=== PATIENT | male | born 1955 | race Hispanic/Latino ===

== ENCOUNTER 2017-06-10 18:02 | Emergency (ER) | payer BC ==
[2017-06-10 18:09] VITALS: BMI 32.7
[2017-06-10 18:10] VITALS: TEMP 98.3
[2017-06-10] MEDS ORDERED: Vancomycin 1gm in NS 250ml 1 GM/250 ML BAG IVPB STA (18:41)
[2017-06-10 19:12] LABS: BASO # 0.06 K/mm3 (0.0-2.0); BASO % 0.5 % (0.0-3.0); EOS # 0.4 (0.0-0.7); EOS % 3.6 % (1.5-5.0); GRAN # 8.12 (1.4-6.5); GRAN % 67.6 % (50.0-68.0); HEMATOCRIT 43.3 % (42.0-52.0); LYMPH # 2.5 (1.2-3.4); LYMPH % 20.6 % (22.0-35.0); MEAN CELL VOLUME 88.5 fl (80.0-105.0); MEAN CORPUSCULAR HEMOGLOBIN 30.5 pg (25.0-35.0); MEAN CORPUSCULAR HGB CONC 34.4 g/dl (31.0-37.0); MEAN PLATELET VOLUME 10.3 fl (7.0-11.0); MONO # 0.9 (0.1-0.6); MONO % 7.7 % (1.0-6.0); RED CELL DISTRIBUTION WIDTH 13.7 % (11.5-14.5)
[2017-06-10 19:20] LABS: ALB/GLOB RATIO 1.2 (1.1-1.8); ALKALINE PHOSPHATASE 84 U/L (38-126); ALT/SGPT 33 U/L (7-56); AST/SGOT 22 U/L (17-59); BILIRUBIN,TOTAL 0.4 mg/dL (0.2-1.3); BLOOD UREA NITROGEN 16 mg/dL (7-21); CALCIUM 8.7 mg/dL (8.4-10.5); CARBON DIOXIDE 31 mmol/L (21-33); CHLORIDE 100 mmol/L (98-107); GFR AFRICAN-AMERICAN > 60; GLUCOSE,RANDOM 113 mg/dL (70-110); POTASSIUM 3.7 mmol/L (3.6-5.0); SODIUM 138 mmol/L (132-148); TOTAL PROTEIN 7.6 g/dL (5.8-8.3)
--- NOTE | 2017-06-10 19:39 | ED PDOC ---
Arrival/HPI - General Historian: Patient, Spouse - History of Present Illness Time/Duration: < month Symptom Onset: Sudden Symptom Course: Improving Quality: Throbbing Severity Level: Mild, Moderate Context: Home - General Chief Complaint: Abnormal Skin Integrity Time Seen by Provider: 06/10/17 18:35 - History of Present Illness Narrative History of Present Illness (Text): 06/10/17 19:34 61M w/no sig PMH evaluated for L neck abscess x 3 weeks. Pt reports lesion started as a small pimple that enlarged overtime, then spontaneous started to drain 1.5 weeks ago. Pt went to PMD today, who sent pt to ED for further evaluation. Denies N & V, F & C, SOB, neck pain, chest pain, palpitations, headache, vision changes, other complaints. PMH: Denies PSH: L knee surgery, cholecystectomy All: Denies SH: ETOH (rare), hx tobacco use (quit 2014, had 1-1.5 ppd x 20+ yrs), denies illicit drug use PMD: Dedousis/Adaniel (Clarisse Thompson) Past Medical History - Provider Review Nursing Documentation Reviewed: Yes - Cardiac Hx Cardiac Disorders: No - Pulmonary Hx Respiratory Disorders: No - Neurological Hx Neurological Disorder: No - HEENT Hx HEENT Disorder: No - Renal Hx Renal Disorder: No - Endocrine/Metabolic Hx Endocrine Disorders: No - Hematological/Oncological Hx Blood Disorders: No - Integumentary Hx Dermatological Disorder: No - Musculoskeletal/Rheumatological Other/Comment: multi sx on left knee, replaced. - Gastrointestinal Hx Gastrointestinal Disorders: No - Genitourinary/Gynecological Hx Genitourinary Disorders: No - Psychiatric Hx Psychophysiologic Disorder: No Hx Substance Use: No - Surgical History Hx Cholecystectomy: Yes - Anesthesia Hx Anesthesia: No Hx Anesthesia Reactions: No Hx Malignant Hyperthermia: No Family/Social History - Physician Review Nursing Documentation Reviewed: Yes Family/Social History: No Known Family HX Smoking Status: Former Smoker Hx Alcohol Use: No Hx Substance Use: No Allergies/Home Meds Allergies/Adverse Reactions: Allergies No Known Allergies Allergy (Verified 06/10/17 18:09) Review of Systems - Physician Review All systems were reviewed & negative as marked: Yes - Review of Systems Constitutional: Normal. absent: Fevers Eyes: Normal. absent: Vision Changes ENT: Normal. absent: Sore Throat Respiratory: Normal. absent: SOB, Cough Cardiovascular: Normal. absent: Chest Pain, Palpitations Gastrointestinal: Normal. absent: Abdominal Pain, Nausea, Vomiting, Appetite Changes Musculoskeletal: Normal. absent: Neck Pain Skin: Abscess (left side neck). absent: Normal Neurological: Normal. absent: Headache, Dizziness Physical Exam Vital Signs Reviewed: Yes Temperature: Afebrile Blood Pressure: Normal Pulse: Regular Respiratory Rate: Normal Appearance: Positive for: Non-Toxic, Comfortable Pain Distress: Mild Mental Status: Positive for: Alert and Oriented X 3 - Systems Exam Head: Present: Atraumatic, Normocephalic Extroacular Muscles: Present: EOMI Conjunctiva: Present: Normal Mouth: Present: Moist Mucous Membranes Nose (External): Present: Atraumatic Neck: Present: Normal Range of Motion, Other (Left neck with large 8 x 6cm area of induration with central ulcer, draining purulent and serous drainage. No palpable fluctuance, tender. ) Respiratory/Chest: Present: Clear to Auscultation, Good Air Exchange. No: Respiratory Distress, Accessory Muscle Use Cardiovascular: Present: Regular Rate and Rhythm, Normal S1, S2. No: Murmurs Abdomen: Present: Normal Bowel Sounds. No: Tenderness, Distention, Peritoneal Signs Back: Present: Normal Inspection Upper Extremity: Present: Normal Inspection. No: Cyanosis, Edema Lower Extremity: Present: Normal Inspection. No: Edema Neurological: Present: GCS=15, CN II-XII Intact, Speech Normal, Motor Func Grossly Intact Skin: Present: Warm, Dry, Erythematous (left neck), Abscess (Left neck). No: Rashes, Normal Color (left neck) Psychiatric: Present: Alert, Oriented x 3, Normal Insight, Normal Concentration Vital Signs Temp Pulse Resp BP Pulse Ox 06/10/17 21:34 68 17 98 06/10/17 21:28 68 17 98 06/10/17 19:36 68 16 148/80 97 06/10/17 18:10 98.3 F 71 17 150/88 96 Medical Decision Making ED Course and Treatment: 06/10/17 18:42 Pt seen/evaluated, will order imaging and blood work to assess abscess depth. 06/10/17 21:20 Performed needle aspiration of abscess without purulent drainage. Pt to be d/c' d - needs to be at work at 10pm. (Clarisse Thompson) Patient Seen With Resident: In agreement with resident note which contains more details about the patient. Patient was seen and evaluated with resident. Came up with plan and treatment together. (Isabella Chadwick) - Lab Interpretations Lab Results: 06/10/17 19:00 06/10/17 19:00 Lab Results 06/10/17 19:00: Sodium 138, Potassium 3.7, Chloride 100, Carbon Dioxide 31, Anion Gap 11, BUN 16, Creatinine 1.2, Est GFR ( Amer) > 60, Est GFR (Non- Af Amer) > 60, Random Glucose 113 H, Calcium 8.7, Total Bilirubin 0.4, AST 22, ALT 33, Alkaline Phosphatase 84, Total Protein 7.6, Albumin 4.1, Globulin 3.5, Albumin/Globulin Ratio 1.2 06/10/17 19:00: WBC 12.0 H, RBC 4.89, Hgb 14.9, Hct 43.3, MCV 88.5, MCH 30.5, MCHC 34.4, RDW 13.7, Plt Count 301, MPV 10.3, Gran % 67.6, Lymph % (Auto) 20.6 L , Potter % (Auto) 7.7 H, Eos % (Auto) 3.6, Baso % (Auto) 0.5, Gran # 8.12 H, Lymph # 2.5, Potter # 0.9 H, Eos # 0.4, Baso # 0.06 - RAD Interpretation Radiology Orders: 06/10/17 18:41 NECK SOFT TISSUE W/CONTRAST [CT] Stat - Medication Orders Current Medication Orders: Discontinued Medications Vancomycin HCl (Vancomycin 1gm) 1 gm in 250 mls @ 167 mls/hr IVPB STAT STA PRN Reason: Protocol Stop: 06/10/17 20:10 Last Admin: 06/10/17 19:13 Dose: 167 mls/hr eMAR Start Stop Document 06/10/17 19:13 MR (Rec: 06/10/17 19:13 MR [id number]) Intravenous Solution Start Date 06/10/17 Start Time 19:13 End Date 06/10/17 End time 20:43 Total Infusion Time 90 Disposition/Present on Arrival - Present on Arrival Any Indicators Present on Arrival: No History of DVT/PE: No History of Uncontrolled Diabetes: No Urinary Catheter: No History of Decub. Ulcer: No History Surgical Site Infection Following: None - Disposition Have Diagnosis and Disposition been Completed?: Yes Disposition Time: 21:22 Patient Plan: Discharge - Disposition Diagnosis: Neck abscess Disposition: HOME/ ROUTINE Condition: STABLE Discharge Instructions (ExitCare): Abscess (ED) Prescriptions: Amoxicillin/Clavulanate [Augmentin 875 MG-125 MG] 1 tab PO Q12H #20 tab Doxycycline Hyclate 100 mg PO Q12H #10 capsule Referrals: Chip Lopez MD [Primary Care Provider] - Follow up with primary Forms: [employer] (Guyanese)
[2017-06-10 19:41] VITALS: BP 148/80; PULSE 68
[2017-06-10] MEDS ORDERED: Iohexol 300 100 ML IJ ONE (20:08)
[2017-06-10 21:28] VITALS: RESP 17; O2SAT 98
--- NOTE | 2017-06-10 22:03 | CT ---
EXAM: CT Neck With Intravenous Contrast EXAM DATE/TIME: 06/10/2017 8:16 PM CLINICAL HISTORY: 61 years old, male; Signs and symptoms; Abscess, cutaneous TECHNIQUE: Axial computed tomography images of the neck with intravenous contrast. All CT scans at this facility use one or more dose reduction techniques, viz.: automated exposure control; ma/kV adjustment per patient size (including targeted exams where dose is matched to indication; i.e. head); or iterative reconstruction technique. Coronal and sagittal reformatted images were created and reviewed. CONTRAST: 100 mL of [id number] administered intravenously. COMPARISON: There are no prior studies for comparison. FINDINGS: Brain: No acute abnormalities are seen in visualized portion of the brain. Sinuses: There is mucoperiosteal thickening and partial opacification of ethmoid air cells. There is mucoperiosteal thickening maxillary, sphenoid and frontal sinuses. There is a left maxillary retention cyst/polyp. Dental: There is streak artifact from a dental appliance Ears and mastoids Middle ears and mastoids are unremarkable. Orbits: Orbital contents are unremarkable. Soft tissues: There is skin thickening in the left neck inferior to the parotid gland. There is edema and inflammation in the subcutaneous fat. There is deep soft tissue swelling/edema, there is edema adjacent to the mid aspect of the left sternocleidomastoid muscle. There is thickening of the fascial planes in the lateral left neck. There is a small collection with minimal discontinuous peripheral enhancement. This measures approximately 2 x 1 x 1.6 cm, image 80 series 602, image 44 series 601, image 75 series 2. The appearance is more suggestive of phlegmon than discrete abscess. Inflammation and edema extending to the skin surface. There is no air in the soft tissues. Tonsils and adenoids: Tonsils and adenoids are unremarkable. Deep facial spaces: Parapharyngeal spaces are symmetric. There are no deep facial masses. Salivary glands: Parotid and submandibular glands are unremarkable. Airway: Airway is unremarkable Thyroid: Right lobe of the thyroid is unremarkable. There are left thyroid nodules. Largest measures approximately 1.5 x 1.6 x 1.7 cm. Vascular: Vascular structures are unremarkable. Nodes: There are mildly enlarged cervical nodes bilaterally, left greater than right Lung apices: There are emphysematous changes at the lung apices. There is no infiltrate. Bony structures: There degenerative changes in the visualized spine. IMPRESSION: Left neck cellulitis with phlegmon, no discrete, well formed abscess; probable reactive adenopathy Additional findings as described above.
== END 2017-06-10 21:35 | disposition home or self-care (01) ==
LOC: ED 18:02
DX: L02.11 Cutaneous abscess of neck (principal)
CPT/HCPCS: 10021; 70491; 80053; 85025; 96365; 99283; Q9967